=== PATIENT | male | born 2000 | race Caucasian/White ===

== ENCOUNTER 2020-09-02 01:30 | Emergency (ER) | payer OTHER ==
[~2020-09-02] VITALS: Ht 198.1 cm; Wt 73.1 kg
[2020-09-02] MEDS ORDERED: LORazepam 2 MG/ML VIAL IV STA (02:39)
[2020-09-02 03:00] VITALS: BP 155/78
== END 2020-09-02 03:20 | disposition home or self-care (01) ==
LOC: M ED 01:30
DX: R20.2 Paresthesia of skin (principal); F17.210 Nicotine dependence, cigarettes, uncomplicated